=== PATIENT | male | born 1995 | race Caucasian/White ===

== ENCOUNTER 2017-02-26 14:11 | Emergency (ER) | payer SELFPAY ==
[~2017-02-26] VITALS: Ht 175.3 cm; Wt 72.6 kg
[2017-02-26 17:12] VITALS: BP 135/53
== END 2017-02-26 17:12 | disposition other institution (70) ==
LOC: ED 14:11
DX: S00.03XA Contusion of scalp, initial encounter (principal); S00.83XA Contusion of other part of head, initial encounter; M54.2 Cervicalgia; M54.5 Low back pain; F17.200 Nicotine dependence, unspecified, uncomplicated; W17.89XA Other fall from one level to another, initial encounter; Y93.02 Activity, running; Y92.89 Other specified places as the place of occurrence of the external cause; Y99.8 Other external cause status
CPT/HCPCS: 90715; 99406; J8597

== ENCOUNTER 2017-02-26 14:11 | Emergency (ER) | payer OTHER | END 2017-02-26 17:12 | disposition other institution (70) | LOC: ED 14:11 | DX: Z02.89 Encounter for other administrative examinations (principal) ==

== ENCOUNTER 2018-10-24 12:14 | Emergency (ER) | payer OTHER ==
[~2018-10-24] VITALS: Ht 180.3 cm; Wt 95.3 kg
[2018-10-24 12:34] VITALS: Ht 180.3 cm; Wt 95.3 kg
[2018-10-24 14:46] VITALS: BP 136/71
== END 2018-10-24 14:47 | disposition other institution (70) ==
LOC: ED 12:14
DX: S00.83XA Contusion of other part of head, initial encounter (principal); S00.03XA Contusion of scalp, initial encounter; Y04.8XXA Assault by other bodily force, initial encounter; Y93.89 Activity, other specified; Y92.89 Other specified places as the place of occurrence of the external cause; Y99.8 Other external cause status

== ENCOUNTER 2018-10-24 12:14 | Emergency (ER) | payer OTHER | END 2018-10-24 14:47 | disposition other institution (70) | LOC: ED 12:14 | DX: Z02.89 Encounter for other administrative examinations (principal) ==